=== PATIENT | female | born 1980 | race Caucasian/White ===

== ENCOUNTER 2022-04-05 10:44 | Emergency (ER) | payer BC ==
[~2022-04-05] VITALS: Ht 167.6 cm; Wt 97.5 kg
--- NOTE | 2022-04-05 10:50 | NUR ---
RECEIVED PATIENT 41 YRS MALE CAME WALKING IN FROM HOME C/O SOB AND CHEST PAIN FOTR 2 DAYS
--- NOTE | 2022-04-05 11:00 | NUR ---
INSERTED ANGO CATHETER G 20 ON RT AC BLOOD DROW AND SENT TO LAB
--- NOTE | 2022-04-05 11:10 | NUR ---
COVID SWAP AND INFL SWAB SENT TO LAB UA SENT TO LAB
--- NOTE | 2022-04-05 11:20 | NUR ---
TECH AT BEDSIDE FOR EKG
[2022-04-05 11:43] LABS: BASOPHILS % (AUTO) 0.9 % (0.0-2.0); EOSINOPHILS % (AUTO) 7.1 % (0.0-6.0); HEMATOCRIT 34 % (33-45); LYMPHOCYTES # (AUTO) 1.1 K/uL (0.8-4.8); LYMPHOCYTES % (AUTO) 23.1 % (20.0-44.0); MEAN CORPUSCULAR HGB CONC 32 g/dl (31.0-36.0); MEAN CORPUSCULAR VOLUME 84 fL (82-100); MONOCYTES # (AUTO) 0.3 K/uL (0.1-1.30); MONOCYTES % (AUTO) 7.3 % (2.0-12.0); NEUTROPHILS # (AUTO) 2.9 K/uL (1.8-8.9); NEUTROPHILS % (AUTO) 61.6 % (43.0-81.0); PLATELET COUNT (AUTO) 251 K/uL (150-450); RED BLOOD CELL COUNT(AUTO) 4.05 MIL/uL (4.0-5.2); WHITE BLOOD COUNT (AUTO) 4.7 K/uL (4.3-11.0)
[2022-04-05 12:38] LABS: CALCIUM, SERUM 8.5 mg/dL (8.5-10.1); CARBON DIOXIDE 22 mmol/L (21-32); CHLORIDE 104 mmol/L (98-107); CREATININE 0.9 mg/dL (0.6-1.3); GLUCOSE 99 mg/dL (74-106); POTASSIUM 3.7 mmol/L (3.5-5.1); SODIUM SERUM 137 mmol/L (136-145); UREA NITROGEN, BLOOD 10 mg/dL (7-18)
--- NOTE | 2022-04-05 13:33 | NUR ---
DINESIS CHEST PAIN OR SOB
--- NOTE | 2022-04-05 13:34 | NUR ---
[facility] FOR LAB RESULT
--- NOTE | 2022-04-05 16:35 | NUR ---
IV removed. Catheter intact and site benign. Pressure and 4x4 applied to site. No bleeding noted.
--- NOTE | 2022-04-05 16:41 | NUR ---
Patient discharged to home in stable condition. Written and verbal after care instructions given. Patient verbalizes understanding of instruction.
[2022-04-05 16:42] VITALS: BP 122/71
== END 2022-04-05 16:43 | disposition home or self-care (01) ==
LOC: ER 10:47
DX: R07.9 Chest pain, unspecified (principal); Z20.822 Contact with and (suspected) exposure to COVID-19; Z91.018 Allergy to other foods; J45.909 Unspecified asthma, uncomplicated
CPT/HCPCS: 99285; 71045; 87426; 93005; 87804; 85025; 80048; 84703; 36415; 84484 ×3; 83880; C9803